=== PATIENT | female | born 1950 | race Caucasian/White ===

== ENCOUNTER 2016-05-17 15:30 | Inpatient (IN) | payer OTHER ==
[~2016-05-17] VITALS: Ht 152.4 cm; Wt 72.5 kg
[~2016-05-17 15:30] MED LIST: CAPITAL WITH C473 ML PO; CYANOCOBALAM1000 MCG PO; HYZAAR 100-21 TABLET PO; IRON325 M1 PO; PROTONIX IV40 MG IV; PROTONIX40 MG PO
[2016-05-17 16:10] LABS: MCH 28.2 PG (29.0-34.0); MCHC 33.1 G/DL (30.0-36.0); MCV 85.3 FL (83-99); MEAN PLAT.VOLUME 9.6 uM^3 (9.5-12.4); PLATELET COUNT 377 K/uL (156-360); RBC DIS.WIDTH-CV 15.1 % (11.8-14.6); RBC DIS.WIDTH-SD 46.1 % (39-53); WHITE BLOOD COUNT 6.7 K/uL (4.1-10.2)
[2016-05-17 16:19] LABS: CHLORIDE 100 mEq/L (99-109); POTASSIUM 3.6 mEq/L (3.7-5.4); SODIUM 134 mEq/L (136-147)
[2016-05-17 16:21] LABS: GLUCOSE 147 mg/dL (70-99)
[2016-05-17 16:23] LABS: ANION GAP 13 MEQ/L (2-14); TOTAL BILIRUBIN 0.8 mg/dL (0.0-1.0)
[2016-05-17 16:25] LABS: ALKALINE PHOSPHATASE 109 IU/L (3-129); GFR ESTIMATE (CALCULATED) 25 mL/min/
[2016-05-17 16:26] LABS: UREA NITROGEN (BUN) 48 mg/dL (9-23)
[2016-05-17 16:29] LABS: LIPASE 12 U/L (1.0-51.0)
[2016-05-17 17:12] LABS: ADD MIUA? YES; BILIRUBIN SMALL; BLOOD LARGE; COLOR YELLOW ((YELLOW)); GLUCOSE (STRIP) NEGATIVE; KETONES NEGATIVE; LEUKOCYTES MODERATE; NITRITE NEGATIVE; PROTEIN (STRIP) 30; SPECIFIC GRAVITY 1.021 (1.000-1.030); UROBILINOGEN 0.2 MG/DL (0.2-1.0)
[2016-05-17 17:14] LABS: BACTERIA 3+ /HPF; CASTS PRESENT /LPF; CRYSTALS PRESENT; EPITHELIAL CELLS 2+ /HPF; MUCUS RARE /LPF; UCUL ADDED? YES
[2016-05-17 17:15] LABS: AMORPHOUS URATES CRYSTALS 2+; FINE GRANULAR CASTS 0-5 /LPF; HYALINE CASTS 0-5 /LPF; OTHER RENAL CELLS
[2016-05-17] MEDS ORDERED: biofreeze TP (20:12)
[2016-05-18 16:22] VITALS: BP 135/60
[2016-05-19] VITALS (7 sets, daily range): BP systolic 90–120; BP diastolic 44–60
[2016-05-19 07:27] LABS: INTER. NORMALIZED RATIO 1.2; PROTHROMBIN TIME 11.8 (9.2-11.2)
[2016-05-19 07:40] LABS: ALKALINE PHOSPHATASE 95 IU/L (3-129); ANION GAP 16 MEQ/L (2-14); CHLORIDE 101 MEQ/L (99-109); GFR ESTIMATE (CALCULATED) 25 mL/min/; GLUCOSE 170 mg/dL (70-99); POTASSIUM 4.1 MEQ/L (3.7-5.4); SAMPLE HEMOLYSIS CHECK 0; SAMPLE ICTERIC CHECK 0; SAMPLE LIPEMIA CHECK 0; SODIUM 130 MEQ/L (136-147); TOTAL BILIRUBIN 0.6 MG/DL (0.0-1.0); UREA NITROGEN (BUN) 72 mg/dL (9-23)
[2016-05-19 07:43] LABS: HEMATOCRIT 24.5 % (36.0-46.0); MCH 28.5 PG (29.0-34.0); MCHC 33.9 G/DL (30.0-36.0); MCV 84.2 FL (83-99); PLATELET COUNT 361 K/uL (156-360); RBC DIS.WIDTH-CV 16.5 % (11.8-14.6); RBC DIS.WIDTH-SD 51.1 % (39-53); RED BLOOD COUNT 2.91 M/uL (3.80-5.20)
[2016-05-19 07:44] LABS: WHITE BLOOD COUNT 10.5 K/uL (4.1-10.2)
[2016-05-19 19:24] LABS: ANION GAP 21 MEQ/L (2-14); CHLORIDE 104 MEQ/L (99-109); GFR ESTIMATE (CALCULATED) 22 mL/min/; GLUCOSE 277 mg/dL (70-99); POTASSIUM 4.6 MEQ/L (3.7-5.4); SAMPLE HEMOLYSIS CHECK 0; SAMPLE ICTERIC CHECK 0; SAMPLE LIPEMIA CHECK 0; SODIUM 133 MEQ/L (136-147); UREA NITROGEN (BUN) 80 mg/dL (9-23)
[2016-05-19 19:28] LABS: TROP-I INTERPRETATION NEGATIVE; TROPONIN-I 0.08 ng/mL (0.0-0.30)
[2016-05-19 20:19] LABS: HEMATOCRIT 24.8 % (36.0-46.0); MCH 28.1 PG (29.0-34.0); MCHC 32.7 G/DL (30.0-36.0); MCV 86.1 FL (83-99); MEAN PLAT.VOLUME 10.4 uM^3 (9.5-12.4); PLATELET COUNT 447 K/uL (156-360); RBC DIS.WIDTH-CV 16.8 % (11.8-14.6); RBC DIS.WIDTH-SD 53.4 % (39-53); RED BLOOD COUNT 2.88 M/uL (3.80-5.20); WHITE BLOOD COUNT 8.8 K/uL (4.1-10.2)
[2016-05-19 21:03] LABS: EOSINOPHIL (%) 0.2 % (0-5); HEMATOLOGY COMMENT 1 SMEAR COMPATIBLE; IMMATURE GRANULOCYTE (%) 0.2 % (0.0-0.7); LYMPHOCYTE COUNT 0.7 K/uL (1.0-2.8); MONOCYTE COUNT 0.2 K/uL (0-0.8); NEUTROPHIL (%) 90.1 % (45-76); NEUTROPHIL COUNT 7.9 K/uL (1.8-6.4); PLAT.SUFFICIENCY ADEQUATE; USER ID NPD
[2016-05-20] VITALS (20 sets, daily range): BP systolic 73–135; BP diastolic 34–71
[2016-05-20 02:44] LABS: HEMATOCRIT 31.6 % (36.0-46.0); MCH 27.5 PG (29.0-34.0); MCV 86.1 FL (83-99); MEAN PLAT.VOLUME 10.5 uM^3 (9.5-12.4); PLATELET COUNT 520 K/uL (156-360); RBC DIS.WIDTH-CV 16.8 % (11.8-14.6); RBC DIS.WIDTH-SD 52.3 % (39-53)
[2016-05-20 02:46] LABS: RED BLOOD COUNT 3.67 M/uL (3.80-5.20); WHITE BLOOD COUNT 12.2 K/uL (4.1-10.2)
[2016-05-20 02:48] LABS: BASE EXCESS -23.2 mEq/L (-3 to +3); BICARBONATE 5.9 mEq/L (22-26); CARBOXY HGB 0.3 % (0-5); METHEMOGLOBIN 2.6 % (0-1.5); PCO2 22 mm Hg (35-45); PO2 84 mm Hg (80-100)
[2016-05-20 02:52] LABS: CHLORIDE 110 mEq/L (99-109); POTASSIUM 4.8 mEq/L (3.7-5.4); SODIUM 138 mEq/L (136-147)
[2016-05-20 02:54] LABS: GLUCOSE 148 mg/dL (70-99)
[2016-05-20 02:55] LABS: ANION GAP 22 MEQ/L (2-14)
[2016-05-20 02:57] LABS: ALKALINE PHOSPHATASE 98 IU/L (3-129)
[2016-05-20 02:59] LABS: UREA NITROGEN (BUN) 89 mg/dL (9-23)
[2016-05-20 03:04] LABS: GFR ESTIMATE (CALCULATED) 14 mL/min/
[2016-05-20 03:05] LABS: TOTAL BILIRUBIN 1.2 mg/dL (0.0-1.0)
[2016-05-20 03:46] LABS: pH 7.04 (7.35-7.45)
[2016-05-20 07:48] LABS: BASE EXCESS -19.3 mEq/L (-3 to +3); BICARBONATE 11.5 mEq/L (22-26); CARBOXY HGB 0.7 % (0-5); COMMENTS - BLOOD GASES C+; METHEMOGLOBIN 1.7 % (0-1.5); PCO2 49 mm Hg (35-45); PO2 219 mm Hg (80-100); SITE LR; pH 6.98 (7.35-7.45)
[2016-05-20 07:49] LABS: DEVICE VENT; FI02 100 %
[2016-05-20 08:41] LABS: BASE EXCESS -18.1 mEq/L (-3 to +3); METHEMOGLOBIN 1.7 % (0-1.5)
[2016-05-20 08:43] LABS: COMMENTS - BLOOD GASES C+; DEVICE 840; FI02 80 %; MECHANICAL RATE 16 resp/min; MODE AC; PCO2 37 mm Hg (35-45); PEEP 5 CM/H20; PO2 114 mm Hg (80-100); SITE ALINE; TIDAL VOLUME 550 ML; TOTAL RESP RATE 16 resp/min
[2016-05-20 08:44] LABS: pH 7.08 (7.35-7.45)
[2016-05-20 09:48] LABS: POINT-OF-CARE METER ID UU13113731
[2016-05-20 09:59] LABS: HEMATOCRIT 40.1 % (36.0-46.0); MCH 28.7 PG (29.0-34.0); MCHC 33.9 G/DL (30.0-36.0); MCV 84.6 FL (83-99); RBC DIS.WIDTH-CV 14.9 % (11.8-14.6); RBC DIS.WIDTH-SD 45.3 % (39-53)
[2016-05-20 10:04] LABS: RED BLOOD COUNT 4.74 M/uL (3.80-5.20); WHITE BLOOD COUNT 6.9 K/uL (4.1-10.2)
[2016-05-20 10:32] LABS: MEAN PLAT.VOLUME 10.3 uM^3 (9.5-12.4)
[2016-05-20 10:47] LABS: BICARBONATE 15.3 mEq/L (22-26); CARBOXY HGB 1.3 % (0-5); COMMENTS - BLOOD GASES C+; DEVICE 840; FI02 80 %; MECHANICAL RATE 14 resp/min; METHEMOGLOBIN 1.6 % (0-1.5); MODE AC; PCO2 47 mm Hg (35-45); PO2 122 mm Hg (80-100); SITE ALINE; TIDAL VOLUME 420 ML; TOTAL RESP RATE 14 resp/min
[2016-05-20 10:48] LABS: PEEP 5 CM/H20; pH 7.12 (7.35-7.45)
[2016-05-20 11:33] LABS: PLATELET COUNT 144 K/uL (156-360)
[2016-05-20 12:03] LABS: ANION GAP 15 MEQ/L (2-14); GLUCOSE 137 mg/dL (70-99); MAGNESIUM 2.1 mg/dl (1.3-2.7); SAMPLE HEMOLYSIS CHECK 0; SAMPLE ICTERIC CHECK 0; SAMPLE LIPEMIA CHECK 0; UREA NITROGEN (BUN) 70 mg/dL (9-23)
[2016-05-20 12:07] LABS: CHLORIDE 117 MEQ/L (99-109); GFR ESTIMATE (CALCULATED) 25 mL/min/; POTASSIUM 3.7 MEQ/L (3.7-5.4); SODIUM 148 MEQ/L (136-147)
[2016-05-20 12:22] LABS: POINT-OF-CARE METER ID UU13113803
[2016-05-20 13:11] LABS: BASE EXCESS -11.6 mEq/L (-3 to +3); CARBOXY HGB 0.8 % (0-5); COMMENTS - BLOOD GASES C+; DEVICE 840; FI02 80 %; MECHANICAL RATE 14 resp/min; METHEMOGLOBIN 1.8 % (0-1.5); MODE AC; PCO2 41 mm Hg (35-45); PEEP 5 CM/H20; PO2 136 mm Hg (80-100); SITE ALINE; TIDAL VOLUME 420 ML; TOTAL RESP RATE 21 resp/min
[2016-05-20 18:06] LABS: BASE EXCESS -8.3 mEq/L (-3 to +3); BICARBONATE 16.5 mEq/L (22-26); CARBOXY HGB 0.7 % (0-5); METHEMOGLOBIN 1.9 % (0-1.5)
[2016-05-20 18:07] LABS: COMMENTS - BLOOD GASES C+; DEVICE 840; FI02 80 %; MECHANICAL RATE 14 resp/min; MODE AC; PCO2 32 mm Hg (35-45); PEEP 5 CM/H20; PO2 185 mm Hg (80-100); SITE ALINE; TIDAL VOLUME 420 ML; TOTAL RESP RATE 26 resp/min; pH 7.32 (7.35-7.45)
[2016-05-20 18:26] LABS: ANION GAP 14 MEQ/L (2-14); CHLORIDE 116 MEQ/L (99-109); GFR ESTIMATE (CALCULATED) 25 mL/min/; GLUCOSE 205 mg/dL (70-99); POTASSIUM 4.4 MEQ/L (3.7-5.4); SAMPLE HEMOLYSIS CHECK 0; SAMPLE ICTERIC CHECK 0; SAMPLE LIPEMIA CHECK 0; SODIUM 147 MEQ/L (136-147); UREA NITROGEN (BUN) 73 mg/dL (9-23)
[2016-05-20 22:29] LABS: BASE EXCESS -5.4 mEq/L (-3 to +3); METHEMOGLOBIN 1.8 % (0-1.5); PCO2 38 mm Hg (35-45); PO2 184 mm Hg (80-100); pH 7.33 (7.35-7.45)
[2016-05-20 22:30] LABS: COMMENTS - BLOOD GASES C+; DEVICE 840; FI02 80 %; MECHANICAL RATE 14 resp/min; MODE AC; PEEP 5 CM/H20; SITE ALINE; TIDAL VOLUME 420 ML; TOTAL RESP RATE 19 resp/min
[2016-05-21] VITALS: BP 137/41
[2016-05-21 04:53] LABS: BASE EXCESS -3.7 mEq/L (-3 to +3); BICARBONATE 22.1 mEq/L (22-26); CARBOXY HGB 1.3 % (0-5); COMMENTS - BLOOD GASES C+; DEVICE 840; FI02 60 %; MECHANICAL RATE 14 resp/min; METHEMOGLOBIN 1.7 % (0-1.5); MODE AC; PCO2 42 mm Hg (35-45); PEEP 5 CM/H20; PO2 133 mm Hg (80-100); SITE ALINE; TIDAL VOLUME 420 ML; TOTAL RESP RATE 19 resp/min; pH 7.33 (7.35-7.45)
[2016-05-21 06:38] LABS: ANION GAP 11 MEQ/L (2-14); CHLORIDE 110 MEQ/L (99-109); GFR ESTIMATE (CALCULATED) 23 mL/min/; GLUCOSE 286 mg/dL (70-99); MAGNESIUM 2.4 mg/dl (1.3-2.7); POTASSIUM 4.3 MEQ/L (3.7-5.4); SAMPLE HEMOLYSIS CHECK 0; SAMPLE ICTERIC CHECK 0; SAMPLE LIPEMIA CHECK 0; SODIUM 145 MEQ/L (136-147); UREA NITROGEN (BUN) 73 mg/dL (9-23)
[2016-05-21 06:55] LABS: HEMATOCRIT 39.7 % (36.0-46.0); MCH 28.5 PG (29.0-34.0); MCHC 35.8 G/DL (30.0-36.0); RBC DIS.WIDTH-SD 48.8 % (39-53); RED BLOOD COUNT 4.99 M/uL (3.80-5.20)
[2016-05-21 07:15] LABS: MEAN PLAT.VOLUME 11.4 uM^3 (9.5-12.4); PLATELET COUNT 110 K/uL (156-360)
[2016-05-21 07:40] LABS: MCV 79.6 FL (83-99); WHITE BLOOD COUNT 13.7 K/uL (4.1-10.2)
[2016-05-21 07:41] LABS: CREATINE KINASE 675 IU/L (1-294)
[2016-05-21 07:57] LABS: TROP-I INTERPRETATION NEGATIVE; TROPONIN-I 0.09 ng/mL (0.0-0.30)
[2016-05-21 14:00] VITALS: BP 100/43
[2016-05-21 18:11] LABS: BASE EXCESS -1.9 mEq/L (-3 to +3); BICARBONATE 23.7 mEq/L (22-26); CARBOXY HGB 1.3 % (0-5); METHEMOGLOBIN 1.8 % (0-1.5); PCO2 43 mm Hg (35-45); pH 7.35 (7.35-7.45)
[2016-05-21 18:12] LABS: COMMENTS - BLOOD GASES C+; DEVICE 840; FI02 40 %; MECHANICAL RATE 14 resp/min; MODE AC; PEEP 5 CM/H20; PO2 105 mm Hg (80-100); SITE ALINE; TIDAL VOLUME 420 ML; TOTAL RESP RATE 16 resp/min
[2016-05-21 18:30] LABS: HEMATOCRIT 33.2 % (36.0-46.0); MCH 27.1 PG (29.0-34.0); MCHC 33.7 G/DL (30.0-36.0); MCV 80.2 FL (83-99); MEAN PLAT.VOLUME 10.8 uM^3 (9.5-12.4); PLATELET COUNT 104 K/uL (156-360); RBC DIS.WIDTH-CV 17.3 % (11.8-14.6); RBC DIS.WIDTH-SD 50.4 % (39-53); RED BLOOD COUNT 4.14 M/uL (3.80-5.20); WHITE BLOOD COUNT 13.7 K/uL (4.1-10.2)
[2016-05-21 18:46] LABS: ALKALINE PHOSPHATASE 78 IU/L (3-129); ANION GAP 9 MEQ/L (2-14); CHLORIDE 112 MEQ/L (99-109); DIRECT BILIRUBIN 1.6 mg/dL (0.0-0.3); GFR ESTIMATE (CALCULATED) 24 mL/min/; GLUCOSE 180 mg/dL (70-99); MAGNESIUM 2.6 mg/dl (1.3-2.7); POTASSIUM 4.4 MEQ/L (3.7-5.4); SAMPLE HEMOLYSIS CHECK 1; SAMPLE ICTERIC CHECK 0; SAMPLE LIPEMIA CHECK 0; SODIUM 145 MEQ/L (136-147); UREA NITROGEN (BUN) 77 mg/dL (9-23)
[2016-05-21 18:54] LABS: TOTAL BILIRUBIN 2.7 MG/DL (0.0-1.0)
[2016-05-21 22:00] VITALS: BP 120/55
[2016-05-22 00:30] LABS: POINT-OF-CARE METER ID UU13113748
[2016-05-22 04:00] VITALS: BP 120/55
[2016-05-22 05:59] LABS: POINT-OF-CARE METER ID UU13113731
[2016-05-22 06:03] LABS: HEMATOCRIT 31.8 % (36.0-46.0); MCH 27.9 PG (29.0-34.0); MCHC 34.3 G/DL (30.0-36.0); MCV 81.5 FL (83-99); MEAN PLAT.VOLUME 11.3 uM^3 (9.5-12.4); PLATELET COUNT 77 K/uL (156-360); RBC DIS.WIDTH-CV 17.7 % (11.8-14.6); RBC DIS.WIDTH-SD 52.6 % (39-53); WHITE BLOOD COUNT 12.5 K/uL (4.1-10.2)
[2016-05-22 06:10] LABS: EOSINOPHIL (%) 0 % (0-5); IMMATURE GRANULOCYTE COUNT 0.1 K/uL; LYMPHOCYTE COUNT 0.6 K/uL (1.0-2.8); MONOCYTE (%) 1.7 % (3-12); MONOCYTE COUNT 0.2 K/uL (0-0.8); NEUTROPHIL (%) 92.5 % (45-76); NEUTROPHIL COUNT 11.6 K/uL (1.8-6.4)
[2016-05-22 06:29] LABS: ALKALINE PHOSPHATASE 65 IU/L (3-129); ANION GAP 11 MEQ/L (2-14); CHLORIDE 111 MEQ/L (99-109); GFR ESTIMATE (CALCULATED) 27 mL/min/; GLUCOSE 162 mg/dL (70-99); MAGNESIUM 2.6 mg/dl (1.3-2.7); POTASSIUM 4.2 MEQ/L (3.7-5.4); SAMPLE HEMOLYSIS CHECK 0; SAMPLE ICTERIC CHECK 0; SAMPLE LIPEMIA CHECK 0; SODIUM 145 MEQ/L (136-147); TOTAL BILIRUBIN 2.6 MG/DL (0.0-1.0); UREA NITROGEN (BUN) 78 mg/dL (9-23)
[2016-05-22 08:00] VITALS: BP 129/60
[2016-05-22 11:41] LABS: POINT-OF-CARE METER ID UU13113731
[2016-05-22 22:00] VITALS: BP 148/72
[2016-05-23] VITALS (10 sets, daily range): BP systolic 119–202; BP diastolic 53–106
[2016-05-23 00:26] LABS: POINT-OF-CARE METER ID UU13113731
[2016-05-23 05:59] LABS: ANION GAP 13 MEQ/L (2-14); CHLORIDE 114 MEQ/L (99-109); GFR ESTIMATE (CALCULATED) 32 mL/min/; GLUCOSE 140 mg/dL (70-99); MAGNESIUM 2.5 mg/dl (1.3-2.7); POTASSIUM 4.3 MEQ/L (3.7-5.4); SAMPLE HEMOLYSIS CHECK 0; SAMPLE ICTERIC CHECK 0; SAMPLE LIPEMIA CHECK 0; SODIUM 148 MEQ/L (136-147); UREA NITROGEN (BUN) 80 mg/dL (9-23)
[2016-05-23 08:30] LABS: HEMATOLOGY COMMENT 1 SMEAR COMPATIBLE; USER ID TLW
[2016-05-23 08:31] LABS: EOSINOPHIL (%) 0.1 % (0-5); HEMATOCRIT 35.7 % (36.0-46.0); IMMATURE GRANULOCYTE (%) 0.4 % (0.0-0.7); IMMATURE GRANULOCYTE COUNT 0.1 K/uL; LYMPHOCYTE COUNT 0.6 K/uL (1.0-2.8); MCH 28.2 PG (29.0-34.0); MCHC 34.5 G/DL (30.0-36.0); MCV 81.9 FL (83-99); MONOCYTE (%) 2.8 % (3-12); MONOCYTE COUNT 0.4 K/uL (0-0.8); NEUTROPHIL (%) 92.7 % (45-76); PLATELET COUNT UNABLE TO REPORT K/uL (156-360); RBC DIS.WIDTH-CV 17.7 % (11.8-14.6); RED BLOOD COUNT 4.36 M/uL (3.80-5.20); WHITE BLOOD COUNT 14.1 K/uL (4.1-10.2)
[2016-05-24] LABS: POINT-OF-CARE METER ID UU13113731
[2016-05-24 05:58] LABS: MCH 26.8 PG (29.0-34.0); MCHC 32.4 G/DL (30.0-36.0); MCV 82.6 FL (83-99); RBC DIS.WIDTH-CV 17.8 % (11.8-14.6); RBC DIS.WIDTH-SD 53.4 % (39-53); RED BLOOD COUNT 4.48 M/uL (3.80-5.20); WHITE BLOOD COUNT 14.9 K/uL (4.1-10.2)
[2016-05-24 06:16] LABS: ANION GAP 11 MEQ/L (2-14); CHLORIDE 114 MEQ/L (99-109); GFR ESTIMATE (CALCULATED) 44 mL/min/; MAGNESIUM 2.2 mg/dl (1.3-2.7); SAMPLE HEMOLYSIS CHECK 0; SAMPLE ICTERIC CHECK 0; SAMPLE LIPEMIA CHECK 0; SODIUM 146 MEQ/L (136-147); UREA NITROGEN (BUN) 65 mg/dL (9-23)
[2016-05-24 06:17] LABS: GLUCOSE 212 mg/dL (70-99)
[2016-05-24 06:42] LABS: EOSINOPHIL (%) 0.4 % (0-5); EOSINOPHIL COUNT 0.1 K/uL (0-0.3); IMMATURE GRANULOCYTE (%) 0.5 % (0.0-0.7); IMMATURE GRANULOCYTE COUNT 0.1 K/uL; LYMPHOCYTE COUNT 0.7 K/uL (1.0-2.8); MONOCYTE (%) 1.7 % (3-12); MONOCYTE COUNT 0.3 K/uL (0-0.8); NEUTROPHIL (%) 92.7 % (45-76); NEUTROPHIL COUNT 13.8 K/uL (1.8-6.4)
[2016-05-24 07:32] LABS: MEAN PLAT.VOLUME 10.9 uM^3 (9.5-12.4); PLAT.SUFFICIENCY DECREASED; USER ID TLW
[2016-05-24 07:35] LABS: PLATELET COUNT 153 K/uL (156-360)
[2016-05-24 09:00] VITALS: BP 142/64
[2016-05-24 11:30] VITALS: BP 142/64
[2016-05-24 12:04] LABS: POINT-OF-CARE METER ID UU13113731
[2016-05-24 18:43] LABS: POINT-OF-CARE METER ID UU13113748
[2016-05-24 23:55] LABS: POINT-OF-CARE METER ID UU14174217
[2016-05-25 06:00] LABS: HEMATOCRIT 35.7 % (36.0-46.0); MCHC 33.3 G/DL (30.0-36.0); RBC DIS.WIDTH-CV 17.9 % (11.8-14.6); RBC DIS.WIDTH-SD 55.2 % (39-53); RED BLOOD COUNT 4.25 M/uL (3.80-5.20); WHITE BLOOD COUNT 13.5 K/uL (4.1-10.2)
[2016-05-25 06:18] LABS: EOSINOPHIL (%) 0.7 % (0-5); EOSINOPHIL COUNT 0.1 K/uL (0-0.3); IMMATURE GRANULOCYTE (%) 0.5 % (0.0-0.7); IMMATURE GRANULOCYTE COUNT 0.1 K/uL; LYMPHOCYTE COUNT 0.6 K/uL (1.0-2.8); MONOCYTE (%) 1.9 % (3-12); MONOCYTE COUNT 0.3 K/uL (0-0.8); NEUTROPHIL (%) 92.6 % (45-76); NEUTROPHIL COUNT 12.5 K/uL (1.8-6.4)
[2016-05-25 06:23] LABS: ANION GAP 8 MEQ/L (2-14); CHLORIDE 116 MEQ/L (99-109); GFR ESTIMATE (CALCULATED) > 59 mL/min/; GLUCOSE 241 mg/dL (70-99); MAGNESIUM 1.9 mg/dl (1.3-2.7); SAMPLE HEMOLYSIS CHECK 0; SAMPLE ICTERIC CHECK 0; SAMPLE LIPEMIA CHECK 0; SODIUM 146 MEQ/L (136-147); UREA NITROGEN (BUN) 51 mg/dL (9-23)
[2016-05-25 07:20] LABS: MEAN PLAT.VOLUME 11.1 uM^3 (9.5-12.4)
[2016-05-25 07:25] VITALS: BP 163/70
[2016-05-25 07:29] LABS: PLATELET COUNT 205 K/uL (156-360)
[2016-05-25 07:56] LABS: PLAT.SUFFICIENCY ADEQUATE; USER ID STC
[2016-05-25 08:58] LABS: BASE EXCESS -4.1 mEq/L (-3 to +3); BICARBONATE 20.9 mEq/L (22-26); CARBOXY HGB 1.8 % (0-5); COMMENTS - BLOOD GASES +C; DEVICE PB840; FI02 30 %; METHEMOGLOBIN 1.5 % (0-1.5); MODE SPONT; PCO2 37 mm Hg (35-45); PO2 90 mm Hg (80-100); SITE A-LINE; TOTAL RESP RATE 18 resp/min; pH 7.36 (7.35-7.45)
[2016-05-25 08:59] LABS: PEEP 5 CM/H20; PRES. SUPPORT 10 CM/H2O
[2016-05-25 15:55] LABS: BASE EXCESS -0.4 mEq/L (-3 to +3); BICARBONATE 22.3 mEq/L (22-26); CARBOXY HGB 1.6 % (0-5); PCO2 30 mm Hg (35-45); PO2 97 mm Hg (80-100); SITE A-LINE; pH 7.48 (7.35-7.45)
[2016-05-25 15:56] LABS: COMMENTS - BLOOD GASES +C; CONTINUOUS POS AIRWAY PRESSURE 5 cm H2O; DEVICE PB840; FI02 30 %; MODE TUBE COMP; TOTAL RESP RATE 21 resp/min
[2016-05-25 19:14] LABS: POINT-OF-CARE METER ID UU13113731
[2016-05-25 21:00] VITALS: BP 170/81
[2016-05-26 00:35] LABS: POINT-OF-CARE METER ID UU13113731; POINT-OF-CARE USER ID RADDRS44
[2016-05-26 06:14] LABS: POINT-OF-CARE METER ID UU13113731; POINT-OF-CARE USER ID RADDRS44
[2016-05-26 06:14] LABS: HEMATOCRIT 35.6 % (36.0-46.0); MCH 27.2 PG (29.0-34.0); RBC DIS.WIDTH-SD 55.4 % (39-53); RED BLOOD COUNT 4.19 M/uL (3.80-5.20)
[2016-05-26 06:33] LABS: MEAN PLAT.VOLUME 11.4 uM^3 (9.5-12.4); PLATELET COUNT 301 K/uL (156-360)
[2016-05-26 06:41] LABS: ANION GAP 10 MEQ/L (2-14); CHLORIDE 114 MEQ/L (99-109); GFR ESTIMATE (CALCULATED) > 59 mL/min/; GLUCOSE 241 mg/dL (70-99); MAGNESIUM 1.8 mg/dl (1.3-2.7); SAMPLE HEMOLYSIS CHECK 0; SAMPLE ICTERIC CHECK 0; SAMPLE LIPEMIA CHECK 0; SODIUM 145 MEQ/L (136-147); UREA NITROGEN (BUN) 43 mg/dL (9-23)
[2016-05-26 07:18] LABS: EOSINOPHIL (%) 0.6 % (0-5); EOSINOPHIL COUNT 0.1 K/uL (0-0.3); IMMATURE GRANULOCYTE (%) 0.5 % (0.0-0.7); IMMATURE GRANULOCYTE COUNT 0.1 K/uL; LYMPHOCYTE COUNT 0.7 K/uL (1.0-2.8); MONOCYTE (%) 2.4 % (3-12); MONOCYTE COUNT 0.3 K/uL (0-0.8); NEUTROPHIL (%) 90.9 % (45-76); NEUTROPHIL COUNT 10.9 K/uL (1.8-6.4); PLAT.SUFFICIENCY ADEQUATE; USER ID BLP
[2016-05-26 13:26] LABS: POINT-OF-CARE METER ID UU13113731
[2016-05-26 17:39] LABS: POINT-OF-CARE METER ID UU13113803
[2016-05-26 19:00] VITALS: BP 156/61
[2016-05-26 20:00] VITALS: BP 142/62
[2016-05-26 21:00] VITALS: BP 160/65
[2016-05-26 22:00] VITALS: BP 152/65
[2016-05-26 23:00] VITALS: BP 164/70
[2016-05-26 23:44] LABS: POINT-OF-CARE METER ID UU14174217; POINT-OF-CARE USER ID LABHNS84
[2016-05-27] VITALS (18 sets, daily range): BP systolic 141–171; BP diastolic 55–77
[2016-05-27 06:07] LABS: POINT-OF-CARE METER ID UU14162636
[2016-05-27 06:34] LABS: EOSINOPHIL (%) 1.2 % (0-5); EOSINOPHIL COUNT 0.2 K/uL (0-0.3); HEMATOCRIT 36.7 % (36.0-46.0); IMMATURE GRANULOCYTE (%) 0.4 % (0.0-0.7); IMMATURE GRANULOCYTE COUNT 0.1 K/uL; LYMPHOCYTE COUNT 0.8 K/uL (1.0-2.8); MCH 26.7 PG (29.0-34.0); MCHC 31.1 G/DL (30.0-36.0); MCV 85.9 FL (83-99); MEAN PLAT.VOLUME 10.9 uM^3 (9.5-12.4); MONOCYTE COUNT 0.5 K/uL (0-0.8); RBC DIS.WIDTH-CV 18.8 % (11.8-14.6); RBC DIS.WIDTH-SD 57.1 % (39-53); RED BLOOD COUNT 4.27 M/uL (3.80-5.20); WHITE BLOOD COUNT 15.6 K/uL (4.1-10.2)
[2016-05-27 06:35] LABS: ANION GAP 8 MEQ/L (2-14); CHLORIDE 115 MEQ/L (99-109); GFR ESTIMATE (CALCULATED) > 59 mL/min/; GLUCOSE 213 mg/dL (70-99); MAGNESIUM 1.8 mg/dl (1.3-2.7); POTASSIUM 4.3 MEQ/L (3.7-5.4); SAMPLE HEMOLYSIS CHECK 0; SAMPLE ICTERIC CHECK 0; SAMPLE LIPEMIA CHECK 0; SODIUM 147 MEQ/L (136-147); UREA NITROGEN (BUN) 38 mg/dL (9-23)
[2016-05-27 06:37] LABS: PLATELET COUNT 409 K/uL (156-360)
[2016-05-27 11:27] LABS: BASE EXCESS 0.3 mEq/L (-3 to +3); BICARBONATE 23.1 mEq/L (22-26); METHEMOGLOBIN 1.6 % (0-1.5); PCO2 31 mm Hg (35-45); pH 7.48 (7.35-7.45)
[2016-05-27 11:28] LABS: DEVICE VENT; FI02 30 %; MODE TC; PEEP 5 CM/H20; PO2 69 mm Hg (80-100); SITE LR ALINE; TOTAL RESP RATE 27 resp/min
[2016-05-27 18:03] LABS: POINT-OF-CARE METER ID UU13113731
[2016-05-28] VITALS (7 sets, daily range): BP systolic 137–168; BP diastolic 57–77
[2016-05-28 00:47] LABS: POINT-OF-CARE METER ID UU13113731
[2016-05-28 05:30] LABS: POINT-OF-CARE METER ID UU14174217
[2016-05-28 06:14] LABS: HEMATOCRIT 35.8 % (36.0-46.0); MCH 26.7 PG (29.0-34.0); MCHC 31.3 G/DL (30.0-36.0); MCV 85.2 FL (83-99); MEAN PLAT.VOLUME 10.9 uM^3 (9.5-12.4); PLATELET COUNT 479 K/uL (156-360); RBC DIS.WIDTH-CV 18.7 % (11.8-14.6); WHITE BLOOD COUNT 16.1 K/uL (4.1-10.2)
[2016-05-28 06:41] LABS: EOSINOPHIL (%) 0.4 % (0-5); EOSINOPHIL COUNT 0.1 K/uL (0-0.3); IMMATURE GRANULOCYTE (%) 0.3 % (0.0-0.7); IMMATURE GRANULOCYTE COUNT 0.1 K/uL; LYMPHOCYTE COUNT 0.8 K/uL (1.0-2.8); MONOCYTE (%) 3.5 % (3-12); MONOCYTE COUNT 0.6 K/uL (0-0.8); NEUTROPHIL (%) 90.8 % (45-76); NEUTROPHIL COUNT 14.6 K/uL (1.8-6.4)
[2016-05-28 06:44] LABS: ANION GAP 10 MEQ/L (2-14); CHLORIDE 112 MEQ/L (99-109); GFR ESTIMATE (CALCULATED) > 59 mL/min/; GLUCOSE 152 mg/dL (70-99); MAGNESIUM 1.7 mg/dl (1.3-2.7); POTASSIUM 4.1 MEQ/L (3.7-5.4); SAMPLE HEMOLYSIS CHECK 0; SAMPLE ICTERIC CHECK 0; SAMPLE LIPEMIA CHECK 0; SODIUM 145 MEQ/L (136-147); UREA NITROGEN (BUN) 30 mg/dL (9-23)
[2016-05-28 08:12] LABS: HEMATOLOGY COMMENT 1 SMEAR COMPATIBLE; PLAT.SUFFICIENCY INCREASED; USER ID TLW
[2016-05-28 11:39] LABS: POINT-OF-CARE METER ID UU14174217
[2016-05-28 18:10] LABS: POINT-OF-CARE METER ID UU13113748
[2016-05-29] VITALS: BP 148/63
[2016-05-29 00:10] LABS: POINT-OF-CARE METER ID UU14174217
[2016-05-29 04:00] VITALS: BP 151/61
[2016-05-29 08:00] VITALS: BP 160/64
[2016-05-29 09:10] LABS: HEMATOCRIT 34.7 % (36.0-46.0); MCH 26.8 PG (29.0-34.0); MCHC 31.4 G/DL (30.0-36.0); MCV 85.5 FL (83-99); MEAN PLAT.VOLUME 10.6 uM^3 (9.5-12.4); PLATELET COUNT 515 K/uL (156-360); RBC DIS.WIDTH-CV 18.7 % (11.8-14.6); RBC DIS.WIDTH-SD 57.2 % (39-53); RED BLOOD COUNT 4.06 M/uL (3.80-5.20); WHITE BLOOD COUNT 15.1 K/uL (4.1-10.2)
[2016-05-29 09:16] LABS: EOSINOPHIL (%) 0.3 % (0-5); IMMATURE GRANULOCYTE (%) 0.3 % (0.0-0.7); LYMPHOCYTE COUNT 0.6 K/uL (1.0-2.8); MONOCYTE (%) 3.6 % (3-12); MONOCYTE COUNT 0.6 K/uL (0-0.8); NEUTROPHIL (%) 91.5 % (45-76); NEUTROPHIL COUNT 13.8 K/uL (1.8-6.4)
[2016-05-29 09:39] LABS: ANION GAP 9 MEQ/L (2-14); CHLORIDE 113 MEQ/L (99-109); GFR ESTIMATE (CALCULATED) > 59 mL/min/; GLUCOSE 196 mg/dL (70-99); POTASSIUM 3.9 MEQ/L (3.7-5.4); SAMPLE HEMOLYSIS CHECK 0; SAMPLE ICTERIC CHECK 0; SAMPLE LIPEMIA CHECK 0; SODIUM 145 MEQ/L (136-147); UREA NITROGEN (BUN) 24 mg/dL (9-23)
[2016-05-29 12:00] VITALS: BP 141/64
[2016-05-29 14:17] LABS: POINT-OF-CARE METER ID UU14174217
[2016-05-29 16:00] VITALS: BP 132/57
[2016-05-29 16:34] LABS: POINT-OF-CARE METER ID UU14174217
[2016-05-29 20:00] VITALS: BP 143/52
[2016-05-29 21:51] LABS: POINT-OF-CARE METER ID UU14174217
[2016-05-30] VITALS: BP 177/74
[2016-05-30 04:00] VITALS: BP 129/54
[2016-05-30 06:36] LABS: C DIFF TOXIN NEGATIVE (NEGATIVE)
[2016-05-30 06:37] LABS: PROBE CHECK PASS; SPECIMEN PROCESSING CONTROL PASS
[2016-05-30 07:30] LABS: BASOPHIL COUNT 0.1 K/uL (0-0.1); EOSINOPHIL (%) 0.8 % (0-5); EOSINOPHIL COUNT 0.1 K/uL (0-0.3); HEMATOCRIT 33.9 % (36.0-46.0); IMMATURE GRANULOCYTE (%) 0.4 % (0.0-0.7); IMMATURE GRANULOCYTE COUNT 0.1 K/uL; LYMPHOCYTE COUNT 0.9 K/uL (1.0-2.8); MCH 28.2 PG (29.0-34.0); MCV 85.4 FL (83-99); MONOCYTE (%) 4.7 % (3-12); MONOCYTE COUNT 0.7 K/uL (0-0.8); NEUTROPHIL (%) 87.9 % (45-76); NEUTROPHIL COUNT 13.7 K/uL (1.8-6.4); RBC DIS.WIDTH-CV 18.7 % (11.8-14.6); RED BLOOD COUNT 3.97 M/uL (3.80-5.20); WHITE BLOOD COUNT 15.6 K/uL (4.1-10.2)
[2016-05-30 07:49] LABS: ANION GAP 7 MEQ/L (2-14); CHLORIDE 114 MEQ/L (99-109); GFR ESTIMATE (CALCULATED) > 59 mL/min/; GLUCOSE 182 mg/dL (70-99); MAGNESIUM 1.7 mg/dl (1.3-2.7); POTASSIUM 4.4 MEQ/L (3.7-5.4); SAMPLE HEMOLYSIS CHECK 1; SAMPLE ICTERIC CHECK 0; SAMPLE LIPEMIA CHECK 0; SODIUM 142 MEQ/L (136-147); UREA NITROGEN (BUN) 23 mg/dL (9-23)
[2016-05-30 07:55] LABS: PLAT.SUFFICIENCY INCREASED; PLATELET CLUMPS PRESENT; PLATELET COUNT UNABLE TO REPORT K/uL (156-360)
[2016-05-30 08:00] VITALS: BP 162/67
[2016-05-30 12:00] VITALS: BP 125/53
[2016-05-30 12:40] LABS: POINT-OF-CARE METER ID UU14174217
[2016-05-30 17:10] LABS: POINT-OF-CARE METER ID UU14174217
[2016-05-30 20:00] VITALS: BP 155/57
[2016-05-30 22:50] LABS: POINT-OF-CARE METER ID UU14174217
[2016-05-31] VITALS: BP 138/51
[2016-05-31 04:00] VITALS: BP 158/61
[2016-05-31 06:27] LABS: ANION GAP 9 MEQ/L (2-14); CHLORIDE 109 MEQ/L (99-109); GFR ESTIMATE (CALCULATED) > 59 mL/min/; GLUCOSE 235 mg/dL (70-99); POTASSIUM 3.6 MEQ/L (3.7-5.4); SAMPLE HEMOLYSIS CHECK 0; SAMPLE ICTERIC CHECK 0; SAMPLE LIPEMIA CHECK 0; SODIUM 141 MEQ/L (136-147); UREA NITROGEN (BUN) 19 mg/dL (9-23)
[2016-05-31 06:30] LABS: MAGNESIUM 1.4 mg/dl (1.3-2.7)
[2016-05-31 06:32] LABS: EOSINOPHIL (%) 0.8 % (0-5); EOSINOPHIL COUNT 0.1 K/uL (0-0.3); HEMATOCRIT 30.1 % (36.0-46.0); IMMATURE GRANULOCYTE (%) 0.2 % (0.0-0.7); LYMPHOCYTE COUNT 0.8 K/uL (1.0-2.8); MCH 26.5 PG (29.0-34.0); MCHC 30.9 G/DL (30.0-36.0); MCV 85.8 FL (83-99); MEAN PLAT.VOLUME 10.4 uM^3 (9.5-12.4); MONOCYTE (%) 3.8 % (3-12); MONOCYTE COUNT 0.4 K/uL (0-0.8); NEUTROPHIL (%) 87.2 % (45-76); NEUTROPHIL COUNT 9.3 K/uL (1.8-6.4); RBC DIS.WIDTH-CV 18.2 % (11.8-14.6); RBC DIS.WIDTH-SD 56.1 % (39-53); RED BLOOD COUNT 3.51 M/uL (3.80-5.20)
[2016-05-31 06:33] LABS: PLATELET COUNT 517 K/uL (156-360); WHITE BLOOD COUNT 10.7 K/uL (4.1-10.2)
[2016-05-31 08:30] VITALS: BP 158/66
[2016-05-31 08:41] LABS: POINT-OF-CARE METER ID UU14162636
[2016-05-31 12:00] VITALS: BP 174/66
[2016-05-31 12:26] LABS: POINT-OF-CARE METER ID UU14162636
[2016-05-31 16:00] VITALS: BP 155/54
[2016-05-31 17:12] LABS: POINT-OF-CARE METER ID UU14174217
[2016-05-31 20:00] VITALS: BP 151/57
[2016-06-01] VITALS: BP 146/65
[2016-06-01 04:00] VITALS: BP 151/63
[2016-06-01 05:38] LABS: HEMATOCRIT 28.6 % (36.0-46.0); MCH 27.9 PG (29.0-34.0); MCHC 32.5 G/DL (30.0-36.0); MCV 85.9 FL (83-99); MEAN PLAT.VOLUME 10.4 uM^3 (9.5-12.4); PLATELET COUNT 466 K/uL (156-360); RBC DIS.WIDTH-CV 17.8 % (11.8-14.6); RBC DIS.WIDTH-SD 55.7 % (39-53); RED BLOOD COUNT 3.33 M/uL (3.80-5.20); WHITE BLOOD COUNT 10.3 K/uL (4.1-10.2)
[2016-06-01 06:02] LABS: ANION GAP 8 MEQ/L (2-14); CHLORIDE 108 MEQ/L (99-109); GFR ESTIMATE (CALCULATED) > 59 mL/min/; GLUCOSE 185 mg/dL (70-99); MAGNESIUM 1.2 mg/dl (1.3-2.7); POTASSIUM 3.8 MEQ/L (3.7-5.4); SAMPLE HEMOLYSIS CHECK 0; SAMPLE ICTERIC CHECK 0; SAMPLE LIPEMIA CHECK 0; SODIUM 138 MEQ/L (136-147); UREA NITROGEN (BUN) 15 mg/dL (9-23)
[2016-06-01 07:03] LABS: EOSINOPHIL (%) 1.3 % (0-5); EOSINOPHIL COUNT 0.1 K/uL (0-0.3); IMMATURE GRANULOCYTE (%) 0.4 % (0.0-0.7); LYMPHOCYTE COUNT 0.7 K/uL (1.0-2.8); MONOCYTE COUNT 0.5 K/uL (0-0.8); NEUTROPHIL (%) 85.9 % (45-76); NEUTROPHIL COUNT 8.9 K/uL (1.8-6.4)
[2016-06-01 08:00] VITALS: BP 166/67
[2016-06-01 08:10] LABS: POINT-OF-CARE METER ID UU14174217
[2016-06-01 12:00] VITALS: BP 158/71
[2016-06-01 12:01] LABS: POINT-OF-CARE METER ID UU14174217
[2016-06-01 17:00] VITALS: BP 146/59
[2016-06-01 17:20] LABS: POINT-OF-CARE METER ID UU14174217
[2016-06-01 20:00] VITALS: BP 145/58
[2016-06-01 22:03] LABS: POINT-OF-CARE METER ID UU13113748
[2016-06-02] VITALS (9 sets, daily range): BP systolic 121–159; BP diastolic 45–72
[2016-06-02 06:12] LABS: HEMATOCRIT 29.1 % (36.0-46.0); MCH 28.2 PG (29.0-34.0); MCV 85.6 FL (83-99); MEAN PLAT.VOLUME 10.6 uM^3 (9.5-12.4); PLATELET COUNT 490 K/uL (156-360); RBC DIS.WIDTH-CV 17.7 % (11.8-14.6); RBC DIS.WIDTH-SD 54.6 % (39-53); WHITE BLOOD COUNT 9.9 K/uL (4.1-10.2)
[2016-06-02 06:21] LABS: BASOPHIL COUNT 0.1 K/uL (0-0.1); EOSINOPHIL (%) 1.8 % (0-5); EOSINOPHIL COUNT 0.2 K/uL (0-0.3); IMMATURE GRANULOCYTE (%) 0.2 % (0.0-0.7); MONOCYTE (%) 4.9 % (3-12); MONOCYTE COUNT 0.5 K/uL (0-0.8); NEUTROPHIL (%) 82.3 % (45-76); NEUTROPHIL COUNT 8.2 K/uL (1.8-6.4)
[2016-06-02 06:35] LABS: ANION GAP 7 MEQ/L (2-14); CHLORIDE 105 MEQ/L (99-109); GFR ESTIMATE (CALCULATED) > 59 mL/min/; GLUCOSE 145 mg/dL (70-99); POTASSIUM 4.2 MEQ/L (3.7-5.4); SAMPLE HEMOLYSIS CHECK 0; SAMPLE ICTERIC CHECK 0; SAMPLE LIPEMIA CHECK 0; SODIUM 135 MEQ/L (136-147); UREA NITROGEN (BUN) 12 mg/dL (9-23)
[2016-06-02 06:36] LABS: MAGNESIUM 1.7 mg/dl (1.3-2.7); VANCOMYCIN, TROUGH 20.6 MCG/ML (10-20)
[2016-06-02 08:32] LABS: POINT-OF-CARE METER ID UU14174217
[2016-06-02 12:27] LABS: POINT-OF-CARE METER ID UU14174217
[2016-06-03 04:18] VITALS: BP 173/77
[2016-06-03 07:15] VITALS: BP 176/81
[2016-06-03 07:24] LABS: BASOPHIL COUNT 0.1 K/uL (0-0.1); EOSINOPHIL (%) 1.8 % (0-5); EOSINOPHIL COUNT 0.2 K/uL (0-0.3); HEMATOCRIT 34.9 % (36.0-46.0); IMMATURE GRANULOCYTE (%) 0.3 % (0.0-0.7); LYMPHOCYTE COUNT 1.2 K/uL (1.0-2.8); MCHC 32.4 G/DL (30.0-36.0); MCV 83.5 FL (83-99); MEAN PLAT.VOLUME 10.4 uM^3 (9.5-12.4); MONOCYTE (%) 7.2 % (3-12); MONOCYTE COUNT 0.7 K/uL (0-0.8); NEUTROPHIL (%) 77.4 % (45-76); NEUTROPHIL COUNT 7.3 K/uL (1.8-6.4); PLATELET COUNT 492 K/uL (156-360); RBC DIS.WIDTH-CV 17.7 % (11.8-14.6); RBC DIS.WIDTH-SD 53.1 % (39-53); WHITE BLOOD COUNT 9.4 K/uL (4.1-10.2)
[2016-06-03 07:25] LABS: RED BLOOD COUNT 4.18 M/uL (3.80-5.20)
[2016-06-03 07:43] LABS: ANION GAP 8 MEQ/L (2-14); CHLORIDE 102 MEQ/L (99-109); GFR ESTIMATE (CALCULATED) > 59 mL/min/; GLUCOSE 132 mg/dL (70-99); MAGNESIUM 1.5 mg/dl (1.3-2.7); SAMPLE HEMOLYSIS CHECK 0; SAMPLE ICTERIC CHECK 0; SAMPLE LIPEMIA CHECK 0; SODIUM 133 MEQ/L (136-147); UREA NITROGEN (BUN) 12 mg/dL (9-23)
[2016-06-03 12:50] VITALS: BP 164/68
[2016-06-03 15:20] VITALS: BP 164/70
[2016-06-03 19:49] VITALS: BP 145/65
[2016-06-03 23:15] VITALS: BP 158/70
[2016-06-04 03:38] VITALS: BP 150/65
[2016-06-04 06:58] LABS: MCH 26.5 PG (29.0-34.0); MCHC 31.6 G/DL (30.0-36.0); MCV 83.8 FL (83-99); PLATELET COUNT 535 K/uL (156-360); RBC DIS.WIDTH-CV 17.5 % (11.8-14.6); RBC DIS.WIDTH-SD 53.2 % (39-53); WHITE BLOOD COUNT 8.5 K/uL (4.1-10.2)
[2016-06-04 07:14] LABS: EOSINOPHIL (%) 1.4 % (0-5); EOSINOPHIL COUNT 0.1 K/uL (0-0.3); IMMATURE GRANULOCYTE (%) 0.2 % (0.0-0.7); MONOCYTE COUNT 0.8 K/uL (0-0.8); NEUTROPHIL (%) 77.6 % (45-76); NEUTROPHIL COUNT 6.6 K/uL (1.8-6.4)
[2016-06-04 07:33] VITALS: BP 184/82
[2016-06-04 07:35] LABS: ANION GAP 9 MEQ/L (2-14); CHLORIDE 101 MEQ/L (99-109); GFR ESTIMATE (CALCULATED) > 59 mL/min/; GLUCOSE 120 mg/dL (70-99); MAGNESIUM 1.3 mg/dl (1.3-2.7); POTASSIUM 3.7 MEQ/L (3.7-5.4); SAMPLE HEMOLYSIS CHECK 0; SAMPLE ICTERIC CHECK 0; SAMPLE LIPEMIA CHECK 0; SODIUM 133 MEQ/L (136-147); UREA NITROGEN (BUN) 9 mg/dL (9-23)
[2016-06-04 11:36] VITALS: BP 155/74
[2016-06-04 15:30] VITALS: BP 163/72
[2016-06-04 23:36] VITALS: BP 155/69
[2016-06-05 08:04] LABS: MCHC 32.3 G/DL (30.0-36.0); MCV 83.6 FL (83-99); MEAN PLAT.VOLUME 9.7 uM^3 (9.5-12.4); PLATELET COUNT 507 K/uL (156-360); RBC DIS.WIDTH-CV 17.7 % (11.8-14.6); RBC DIS.WIDTH-SD 53.7 % (39-53); RED BLOOD COUNT 3.71 M/uL (3.80-5.20); WHITE BLOOD COUNT 8.6 K/uL (4.1-10.2)
[2016-06-05 08:09] LABS: EOSINOPHIL (%) 1.6 % (0-5); EOSINOPHIL COUNT 0.1 K/uL (0-0.3); IMMATURE GRANULOCYTE (%) 0.2 % (0.0-0.7); LYMPHOCYTE COUNT 0.9 K/uL (1.0-2.8); MONOCYTE (%) 9.4 % (3-12); MONOCYTE COUNT 0.8 K/uL (0-0.8); NEUTROPHIL (%) 78.4 % (45-76); NEUTROPHIL COUNT 6.8 K/uL (1.8-6.4)
[2016-06-05 08:11] VITALS: BP 188/87
[2016-06-05 08:44] LABS: ANION GAP 10 MEQ/L (2-14); CHLORIDE 101 MEQ/L (99-109); GFR ESTIMATE (CALCULATED) > 59 mL/min/; GLUCOSE 106 mg/dL (70-99); MAGNESIUM 1.3 mg/dl (1.3-2.7); POTASSIUM 3.7 MEQ/L (3.7-5.4); SAMPLE HEMOLYSIS CHECK 0; SAMPLE ICTERIC CHECK 0; SAMPLE LIPEMIA CHECK 0; SODIUM 133 MEQ/L (136-147); UREA NITROGEN (BUN) 8 mg/dL (9-23)
[2016-06-05] MEDS ORDERED: METFORMIN HCL500 MG PO (10:57)
[2016-06-05] MEDS ORDERED: METOPROLOL SUCC25 MG PO (10:57)
[2016-06-05] MEDS ORDERED: ENDOCET 5-3251 EACH PO (10:57)
[2016-06-05 12:00] LABS: POINT-OF-CARE METER ID UU14162508
[2016-06-05] MEDS ORDERED: XANAX0.25 MG PO (16:12)
[2016-06-05] MEDS ORDERED: LOVENOX40 MG/0.4 SC (16:13)
== END 2016-06-05 15:22 | DRG 981 ==
LOC: EME 15:30 → EDOF 22:11 → 4WEST 22:11 → 5EAST 22:11 → 4EAST 05-19 22:56 → 4WEST 05-20 02:13 → 2EAST 06-02 23:38
PROVIDERS: Internal Medicine; Internal Medicine Critical Care Medicine; Internal Medicine Nephrology; Physician Assistant; Student in an Organized Health Care Education/Training Program; Surgery
DX: C49.A3 Gastrointestinal stromal tumor of small intestine (principal); A41.9 Sepsis, unspecified organism; J18.9 Pneumonia, unspecified organism; I48.91 Unspecified atrial fibrillation; N17.9 Acute kidney failure, unspecified; N39.0 Urinary tract infection, site not specified; J98.11 Atelectasis; R65.21 Severe sepsis with septic shock; J69.0 Pneumonitis due to inhalation of food and vomit; J96.00 Acute respiratory failure, unspecified whether with hypoxia or hypercapnia; E87.2 Acidosis; E87.0 Hyperosmolality and hypernatremia; E83.39 Other disorders of phosphorus metabolism; E83.42 Hypomagnesemia; Y95 Nosocomial condition; I10 Essential (primary) hypertension; J44.9 Chronic obstructive pulmonary disease, unspecified; D64.9 Anemia, unspecified; K21.9 Gastro-esophageal reflux disease without esophagitis
CPT/HCPCS: 36600; 71010; 71020; 74000; 74176; 80048; 80048 91; 80053; 80076; 80202; 81003; 82550; 82803; 82948; 83605; 83690; 83735; 84100; 84484; 85025; 85027; 85610; 86850; 86900; 86901; 86920; 87040; 87070; 87077; 87086; 87106; 87186; 87205; 87493; 88305; 88307; 93005; 94002; 94003; 94010; 94640 76; 94667; 94668; 94760; 94799; 97530 GO; 97530 GP; 99202; 99281; 99285; C9113; J0360; J0692; J0696; J1170; J1265; J1335; J1450; J1630; J1650; J1815; J1940; J2250; J2270; J2405; J2543; J2704; J3010; J3370; J3475; J3480; J7040; J7050; J7070; J7120; P9016; P9045; P9047; S0030

== ENCOUNTER 2016-06-05 11:44 | Inpatient (IN) | payer OTHER ==
[~2016-06-05] VITALS: Ht 157.5 cm; Wt 69.6 kg
[~2016-06-05 11:44] MED LIST changes: +ENDOCET 5-3251 EACH PO; +METFORMIN HCL500 MG PO; +METOPROLOL SUCC25 MG PO; +biofreeze TP
[2016-06-05 15:41] VITALS: BP 143/73
[2016-06-05] MEDS ORDERED: XANAX0.25 MG PO (16:12)
[2016-06-05] MEDS ORDERED: LOVENOX40 MG/0.4 SC (16:13)
[2016-06-05 21:00] LABS: POINT-OF-CARE METER ID UU13113720
[2016-06-06 05:29] LABS: HEMATOCRIT 29.1 % (36.0-46.0); MCH 28.4 PG (29.0-34.0); MCHC 33.7 G/DL (30.0-36.0); MCV 84.3 FL (83-99); MEAN PLAT.VOLUME 9.4 uM^3 (9.5-12.4); PLATELET COUNT 393 K/uL (156-360); RBC DIS.WIDTH-CV 17.5 % (11.8-14.6); RBC DIS.WIDTH-SD 53.4 % (39-53); RED BLOOD COUNT 3.45 M/uL (3.80-5.20)
[2016-06-06 05:43] VITALS: BP 160/74
[2016-06-06 05:56] LABS: ALKALINE PHOSPHATASE 104 IU/L (3-129); ANION GAP 9 MEQ/L (2-14); CHLORIDE 101 MEQ/L (99-109); GFR ESTIMATE (CALCULATED) > 59 mL/min/; GLUCOSE 104 mg/dL (70-99); POTASSIUM 3.3 MEQ/L (3.7-5.4); SAMPLE HEMOLYSIS CHECK 0; SAMPLE ICTERIC CHECK 0; SAMPLE LIPEMIA CHECK 0; SODIUM 134 MEQ/L (136-147); TOTAL BILIRUBIN 0.6 MG/DL (0.0-1.0); UREA NITROGEN (BUN) 8 mg/dL (9-23)
[2016-06-06 07:34] LABS: POINT-OF-CARE METER ID UU13113720; POINT-OF-CARE USER ID AHSSSJB31
[2016-06-06 12:11] LABS: POINT-OF-CARE METER ID UU13113720; POINT-OF-CARE USER ID AHSSSJB31
[2016-06-06 15:31] VITALS: BP 178/81
[2016-06-06 16:15] LABS: POINT-OF-CARE METER ID UU14174215
[2016-06-06 21:27] LABS: POINT-OF-CARE METER ID UU14174215
[2016-06-07 05:42] VITALS: BP 150/74
[2016-06-07 07:22] LABS: POINT-OF-CARE METER ID UU13113720; POINT-OF-CARE USER ID AHSSSJB31
[2016-06-07 12:02] LABS: POINT-OF-CARE METER ID UU13113720; POINT-OF-CARE USER ID AHSSSJB31
[2016-06-07 15:00] VITALS: BP 188/80
[2016-06-07 16:37] LABS: POINT-OF-CARE METER ID UU13113720
[2016-06-07 21:07] LABS: POINT-OF-CARE METER ID UU13113720
[2016-06-07 21:19] VITALS: BP 168/78
[2016-06-08 05:40] VITALS: BP 170/82
[2016-06-08 07:40] LABS: POINT-OF-CARE METER ID UU14174215; POINT-OF-CARE USER ID AHSSSJB31
[2016-06-08 11:18] LABS: POINT-OF-CARE METER ID UU14174215
[2016-06-08 15:58] VITALS: BP 190/70
[2016-06-08 16:40] LABS: POINT-OF-CARE METER ID UU14174215
[2016-06-08 18:00] VITALS: BP 180/47
[2016-06-09 05:31] VITALS: BP 142/73
[2016-06-09 07:29] LABS: POINT-OF-CARE METER ID UU14174215; POINT-OF-CARE USER ID AHSSSJB31
[2016-06-09 16:20] VITALS: BP 170/68
[2016-06-09 16:59] LABS: POINT-OF-CARE METER ID UU14174215
[2016-06-10 05:27] VITALS: BP 132/61
[2016-06-10 05:28] LABS: HEMATOCRIT 31.6 % (36.0-46.0); MCH 26.7 PG (29.0-34.0); MCHC 31.6 G/DL (30.0-36.0); MCV 84.5 FL (83-99); RBC DIS.WIDTH-SD 55.9 % (39-53); RED BLOOD COUNT 3.74 M/uL (3.80-5.20); WHITE BLOOD COUNT 7.4 K/uL (4.1-10.2)
[2016-06-10 05:43] LABS: MEAN PLAT.VOLUME 9.5 uM^3 (9.5-12.4)
[2016-06-10 05:44] LABS: PLATELET COUNT 546 K/uL (156-360)
[2016-06-10 05:51] LABS: ANION GAP 11 MEQ/L (2-14); CHLORIDE 99 MEQ/L (99-109); GFR ESTIMATE (CALCULATED) > 59 mL/min/; GLUCOSE 106 mg/dL (70-99); SAMPLE HEMOLYSIS CHECK 0; SAMPLE ICTERIC CHECK 0; SAMPLE LIPEMIA CHECK 0; SODIUM 132 MEQ/L (136-147); TOTAL BILIRUBIN 0.7 MG/DL (0.0-1.0); UREA NITROGEN (BUN) 8 mg/dL (9-23)
[2016-06-10 05:53] LABS: POTASSIUM 4.1 MEQ/L (3.7-5.4)
[2016-06-10 05:54] LABS: ALKALINE PHOSPHATASE 151 IU/L (3-129)
[2016-06-10 06:53] LABS: POINT-OF-CARE METER ID UU14174215; POINT-OF-CARE USER ID ENVGAF
[2016-06-10 15:32] VITALS: BP 191/84
[2016-06-10 19:38] VITALS: BP 150/72
[2016-06-11 06:25] VITALS: BP 130/72
[2016-06-11 07:12] LABS: POINT-OF-CARE METER ID UU14174215
[2016-06-11 11:31] LABS: POINT-OF-CARE METER ID UU14174215
[2016-06-11 15:48] VITALS: BP 170/68
[2016-06-12 05:18] VITALS: BP 140/70
[2016-06-12 05:39] LABS: HEMATOCRIT 32.6 % (36.0-46.0); MCH 26.9 PG (29.0-34.0); MCHC 31.9 G/DL (30.0-36.0); MCV 84.5 FL (83-99); PLATELET COUNT 626 K/uL (156-360); RBC DIS.WIDTH-CV 17.6 % (11.8-14.6); RBC DIS.WIDTH-SD 54.2 % (39-53); RED BLOOD COUNT 3.86 M/uL (3.80-5.20); WHITE BLOOD COUNT 9.1 K/uL (4.1-10.2)
[2016-06-12 06:27] LABS: ANION GAP 11 MEQ/L (2-14); CHLORIDE 97 MEQ/L (99-109); GFR ESTIMATE (CALCULATED) > 59 mL/min/; GLUCOSE 116 mg/dL (70-99); POTASSIUM 4.2 MEQ/L (3.7-5.4); SAMPLE HEMOLYSIS CHECK 0; SAMPLE ICTERIC CHECK 0; SAMPLE LIPEMIA CHECK 0; SODIUM 131 MEQ/L (136-147); TOTAL BILIRUBIN 0.7 MG/DL (0.0-1.0); UREA NITROGEN (BUN) 11 mg/dL (9-23)
[2016-06-12 06:28] LABS: ALKALINE PHOSPHATASE 205 IU/L (3-129)
[2016-06-12 07:15] LABS: POINT-OF-CARE METER ID UU14174215
[2016-06-12] MEDS ORDERED: METOPROLOL SUCC25 MG PO (10:43)
[2016-06-12] MEDS ORDERED: ASCORBIC ACID500 M3 PO (10:43)
[2016-06-12] MEDS ORDERED: PROTONIX40 MG PO (10:43)
[2016-06-12] MEDS ORDERED: CYANOCOBALAM1000 MCG PO (10:43)
[2016-06-12] MEDS ORDERED: FOLIC ACID1 MG PO (10:43)
[2016-06-12] MEDS ORDERED: ENDOCET 5-3251 EACH PO (10:43)
[2016-06-12] MEDS ORDERED: THERAGRAN1 TABLET PO (10:43)
[2016-06-12] MEDS ORDERED: METFORMIN HCL500 MG PO (10:43)
[2016-06-12] MEDS ORDERED: K-DUR20 MEQ PO (10:43)
[2016-06-12 15:17] VITALS: BP 145/89
[2016-06-12 15:57] VITALS: BP 154/72
[2016-06-13 05:42] VITALS: BP 140/76
[2016-06-13 06:46] LABS: POINT-OF-CARE METER ID UU13113720
== END 2016-06-13 13:21 | disposition home health service (06) | DRG 949 ==
LOC: 3WEST 11:44
PROVIDERS: Physical Medicine & Rehabilitation Pain Medicine
PROC: F07M0ZZ Range of Motion and Joint Mobility Treatment of Musculoskeletal System - Whole Body (ICD-10-PCS; principal; 2016-06-05)
DX: Z48.815 Encounter for surgical aftercare following surgery on the digestive system (principal); J18.9 Pneumonia, unspecified organism; R18.8 Other ascites; C78.6 Secondary malignant neoplasm of retroperitoneum and peritoneum; C49.4 Malignant neoplasm of connective and soft tissue of abdomen; E87.1 Hypo-osmolality and hyponatremia; C17.9 Malignant neoplasm of small intestine, unspecified; D62 Acute posthemorrhagic anemia; Z48.816 Encounter for surgical aftercare following surgery on the genitourinary system; Z74.09 Other reduced mobility; R26.2 Difficulty in walking, not elsewhere classified; I10 Essential (primary) hypertension; K21.9 Gastro-esophageal reflux disease without esophagitis; E78.5 Hyperlipidemia, unspecified; Z93.2 Ileostomy status; R11.0 Nausea; R53.1 Weakness; Z79.4 Long term (current) use of insulin; Z79.84 Long term (current) use of oral hypoglycemic drugs; Y95 Nosocomial condition; E83.51 Hypocalcemia; E87.8 Other disorders of electrolyte and fluid balance, not elsewhere classified; E11.9 Type 2 diabetes mellitus without complications; Z88.6 Allergy status to analgesic agent; Z88.8 Allergy status to other drugs, medicaments and biological substances; G89.18 Other acute postprocedural pain; J44.9 Chronic obstructive pulmonary disease, unspecified; E87.6 Hypokalemia; R79.89 Other specified abnormal findings of blood chemistry
CPT/HCPCS: 80053; 82948; 85027; 97110 GO; 97530 GP; J1650

== ENCOUNTER 2017-09-27 12:40 | Emergency (ER) | payer OTHER ==
[~2017-09-27] VITALS: Ht 160 cm; Wt 72.7 kg
[~2017-09-27 12:40] MED LIST changes: +AMLODIPINE BESY10 MG PO; +ASCORBIC ACID500 M3 PO; +FOLIC ACID1 MG PO; +GLEEVEC400 MG PO; +K-DUR20 MEQ PO; +LOVENOX40 MG/0.4 SC; +THERAGRAN1 TABLET PO; +VITAMIN D2000 UNI1 PO; +XANAX0.25 MG PO
[2017-09-27 13:41] LABS: HEMATOCRIT 35.7 % (36.0-46.0); HEMOGLOBIN 12.9 G/DL (11.9-15.5); MCH 34.5 PG (29.0-34.0); MCHC 36.1 G/DL (30.0-36.0); MCV 95.5 FL (83-99); PLATELET COUNT 301 K/uL (156-360); RBC DIS.WIDTH-CV 12.5 % (11.8-14.6); RED BLOOD COUNT 3.74 M/uL (3.80-5.20); WHITE BLOOD COUNT 11.4 K/uL (4.1-10.2)
[2017-09-27 13:56] LABS: ALBUMIN 4.6 g/dL (3.2-4.8); CHLORIDE 107 mEq/L (99-109); POTASSIUM 3.7 mEq/L (3.7-5.4); SODIUM 140 mEq/L (136-147)
[2017-09-27 13:58] LABS: GLUCOSE 141 mg/dL (70-99)
[2017-09-27 14:00] LABS: TOTAL BILIRUBIN 0.5 mg/dL (0.0-1.0)
[2017-09-27 14:02] LABS: ALKALINE PHOSPHATASE 141 IU/L (3-129); CREATININE 2.2 mg/dL (0.6-1.3); GFR ESTIMATE (CALCULATED) 24 mL/min/
[2017-09-27 14:03] LABS: UREA NITROGEN (BUN) 18 mg/dL (9-23)
[2017-09-27 14:04] LABS: AST (GOT) 22 IU/L (2-34)
[2017-09-27 14:05] LABS: ALT (GPT) 17 IU/L (3-49)
[2017-09-27 15:25] LABS: APPEARANCE SL.HAZY ((CLEAR)); BILIRUBIN NEGATIVE; BLOOD LARGE; COLOR YELLOW ((YELLOW)); GLUCOSE (STRIP) NEGATIVE; KETONES NEGATIVE; LEUKOCYTES TRACE; NITRITE NEGATIVE; PROTEIN (STRIP) 30; SPECIFIC GRAVITY 1.011 (1.000-1.030); UROBILINOGEN 0.2 MG/DL (0.2-1.0)
[2017-09-27 16:32] LABS: WHITE BLOOD CELLS RARE /HPF (0-5)
[2017-09-27 16:33] LABS: BACTERIA NONE SEEN /HPF; EPITHELIAL CELLS RARE /HPF; MUCUS NONE SEEN /LPF; UCUL ADDED? NO
[2017-09-27] MEDS ORDERED: ZOFRAN4 MG PO (19:09)
[2017-09-27] MEDS ORDERED: PERCOCET 5/31 TABLET PO (19:10)
[2017-09-27 19:53] VITALS: BP 156/81
== END 2017-09-27 19:55 | disposition home or self-care (01) ==
LOC: EME 12:40
DX: N13.2 Hydronephrosis with renal and ureteral calculous obstruction (principal); I10 Essential (primary) hypertension; F41.9 Anxiety disorder, unspecified; Z93.2 Ileostomy status; Z87.19 Personal history of other diseases of the digestive system; Z88.6 Allergy status to analgesic agent; Z88.8 Allergy status to other drugs, medicaments and biological substances
CPT/HCPCS: 74176; 80053; 81003; 85027; 99281; 99285; J2405; J3010